=== PATIENT | female | born 1960 | race Two or more races ===

== ENCOUNTER 2017-09-22 09:09 | Outpatient (CLI) | payer OTHER | END 2017-09-22 09:23 | disposition home or self-care (01) | LOC: LAB 09:09 | DX: D64.9 Anemia, unspecified (principal); E03.8 Other specified hypothyroidism; E78.2 Mixed hyperlipidemia; E55.9 Vitamin D deficiency, unspecified; M19.90 Unspecified osteoarthritis, unspecified site; R19.09 Other intra-abdominal and pelvic swelling, mass and lump ==

== ENCOUNTER 2017-09-22 10:20 | Outpatient (CLI) | payer OTHER | END 2017-09-22 10:41 | disposition home or self-care (01) | LOC: RAD 10:20 | DX: R10.2 Pelvic and perineal pain (principal); Z12.31 Encounter for screening mammogram for malignant neoplasm of breast; N60.11 Diffuse cystic mastopathy of right breast; N60.12 Diffuse cystic mastopathy of left breast ==

== ENCOUNTER 2017-09-23 08:17 | Outpatient (CLI) | payer OTHER | END 2017-09-23 09:00 | disposition home or self-care (01) | LOC: NUCLEAR 08:17 | DX: R10.2 Pelvic and perineal pain (principal); R94.31 Abnormal electrocardiogram [ECG] [EKG]; I65.23 Occlusion and stenosis of bilateral carotid arteries ==

== ENCOUNTER 2018-02-07 08:38 | Outpatient (CLI) | payer OTHER | END 2018-02-07 15:01 | disposition home or self-care (01) | LOC: TOM 08:38 | DX: R91.1 Solitary pulmonary nodule (principal) ==

== ENCOUNTER → 2018-02-07 | Outpatient (CLI) | payer OTHER | END | disposition home or self-care (01) | LOC: LAB 06:53 | DX: E78.2 Mixed hyperlipidemia (principal); N83.291 Other ovarian cyst, right side; N83.292 Other ovarian cyst, left side ==

== ENCOUNTER 2018-02-08 14:51 | Outpatient (CLI) | payer OTHER | END 2018-02-08 15:07 | disposition home or self-care (01) | LOC: NUCLEAR 14:51 | DX: M81.0 Age-related osteoporosis without current pathological fracture (principal) ==

== ENCOUNTER → 2018-02-08 | Outpatient (CLI) | payer OTHER | END | disposition home or self-care (01) | LOC: LAB 13:57 | DX: N95.8 Other specified menopausal and perimenopausal disorders (principal) ==

== ENCOUNTER 2018-09-23 09:59 | Outpatient (CLI) | payer OTHER | END 2018-09-23 15:00 | disposition home or self-care (01) | LOC: LAB 09:59 | DX: D64.89 Other specified anemias (principal); E11.9 Type 2 diabetes mellitus without complications; E78.2 Mixed hyperlipidemia; E03.8 Other specified hypothyroidism; E55.9 Vitamin D deficiency, unspecified ==

== ENCOUNTER 2018-09-26 12:32 | Outpatient (CLI) | payer OTHER | END 2018-09-26 12:54 | disposition home or self-care (01) | LOC: MAMO-SONO 12:32 | DX: N60.11 Diffuse cystic mastopathy of right breast (principal); N60.12 Diffuse cystic mastopathy of left breast; Z12.31 Encounter for screening mammogram for malignant neoplasm of breast ==

== ENCOUNTER 2019-03-23 11:44 | Outpatient (CLI) | payer OTHER | END 2019-03-23 14:52 | disposition home or self-care (01) | LOC: LAB 11:44 | DX: D64.89 Other specified anemias (principal); E11.9 Type 2 diabetes mellitus without complications; E03.8 Other specified hypothyroidism; N39.0 Urinary tract infection, site not specified; E55.9 Vitamin D deficiency, unspecified; Z12.11 Encounter for screening for malignant neoplasm of colon ==

== ENCOUNTER 2019-03-26 09:12 | Outpatient (CLI) | payer OTHER | END 2019-03-26 15:00 | disposition home or self-care (01) | LOC: LAB 09:12 | DX: D64.89 Other specified anemias (principal); E11.9 Type 2 diabetes mellitus without complications; E03.8 Other specified hypothyroidism; N39.0 Urinary tract infection, site not specified; E55.9 Vitamin D deficiency, unspecified; Z12.11 Encounter for screening for malignant neoplasm of colon ==

== ENCOUNTER 2020-08-04 14:02 | Outpatient (CLI) | payer OTHER | END 2020-08-04 14:10 | disposition home or self-care (01) | LOC: LAB 14:02 | PROVIDERS: ATTEND Internal Medicine | DX: E03.8 Other specified hypothyroidism (principal); R97.1 Elevated cancer antigen 125 [CA 125] ==

== ENCOUNTER 2020-10-20 10:03 | Emergency (ER) | payer OTHER ==
[~2020-10-20] VITALS: Ht 157.5 cm; Wt 68.9 kg
[2020-10-20] MEDS ORDERED: CLONAZEPAM0.5 MG PO (10:25)
[2020-10-20] MEDS ORDERED: ATORVASTATIN CA10 MG PO (10:25)
[2020-10-20] MEDS ORDERED: LEVOTHYROXINE25 MCG PO (10:25)
[2020-10-20] MEDS ORDERED: KETO10TA2 PO (13:56)
[2020-10-22] MEDS ORDERED: LEVOTHYROXINE75 MCG (08:18)
== END 2020-10-20 14:36 | disposition home or self-care (01) ==
LOC: ER 10:03
DX: S50.11XA Contusion of right forearm, initial encounter (principal); W18.39XA Other fall on same level, initial encounter; Y93.89 Activity, other specified; Y92.89 Other specified places as the place of occurrence of the external cause; Y99.8 Other external cause status

== ENCOUNTER → 2020-10-21 | Day surgery (SDC) | payer OTHER ==
[~2020-10-21] VITALS: Ht 165.1 cm; Wt 74.8 kg
[~2020-10-21] MED LIST: ATORVASTATIN CA10 MG PO; CLONAZEPAM0.5 MG PO; KETO10TA2 PO; LEVOTHYROXINE25 MCG PO; LEVOTHYROXINE75 MCG
== END | disposition home or self-care (01) ==
LOC: ER 06:05 → CIR.AMB 06:07 → ER 06:07 → O/R 10:16 → ER 10:16 → SEC-K 10:16 → EDSTATUS 13:00 → O/R 13:14 → SEC-K 13:14 → SURG 17:12 → O/R 17:12 → SURG 18:00 → O/R 10-22 08:46
PROVIDERS: ATTEND Emergency Medicine
DX: S52.571A Other intraarticular fracture of lower end of right radius, initial encounter for closed fracture (principal); S52.691A Other fracture of lower end of right ulna, initial encounter for closed fracture; Z20.822 Contact with and (suspected) exposure to COVID-19

== ENCOUNTER 2021-03-31 10:28 | Outpatient (CLI) | payer OTHER | END 2021-03-31 10:29 | disposition home or self-care (01) | LOC: LAB 10:28 | PROVIDERS: ATTEND Internal Medicine | DX: E03.8 Other specified hypothyroidism (principal); I10 Essential (primary) hypertension; D64.89 Other specified anemias; E11.9 Type 2 diabetes mellitus without complications; E78.2 Mixed hyperlipidemia; N39.0 Urinary tract infection, site not specified; E55.9 Vitamin D deficiency, unspecified; N91.1 Secondary amenorrhea; Z79.890 Hormone replacement therapy ==

== ENCOUNTER 2021-04-23 10:49 | Outpatient (CLI) | payer OTHER | END 2021-04-23 10:58 | disposition home or self-care (01) | LOC: LAB 10:49 | PROVIDERS: ATTEND Specialist | DX: R19.00 Intra-abdominal and pelvic swelling, mass and lump, unspecified site (principal) ==

== ENCOUNTER 2021-10-14 13:07 | Outpatient (CLI) | payer OTHER | END 2021-10-14 13:17 | disposition home or self-care (01) | LOC: MAMO-SONO 13:07 | PROVIDERS: ATTEND Internal Medicine | DX: N60.11 Diffuse cystic mastopathy of right breast (principal); N60.12 Diffuse cystic mastopathy of left breast ==

== ENCOUNTER 2021-10-14 14:35 | Outpatient (CLI) | payer OTHER | END 2021-10-14 14:40 | disposition home or self-care (01) | LOC: NUCLEAR 14:35 | PROVIDERS: ATTEND Internal Medicine | DX: M81.0 Age-related osteoporosis without current pathological fracture (principal); Z88.0 Allergy status to penicillin ==

== ENCOUNTER 2022-07-19 11:07 | Outpatient (CLI) | payer OTHER | END 2022-07-19 11:20 | disposition home or self-care (01) | LOC: RAD 11:07 | PROVIDERS: ATTEND Internal Medicine Gastroenterology | DX: R10.11 Right upper quadrant pain (principal); R10.13 Epigastric pain ==

== ENCOUNTER 2022-10-12 10:49 | Outpatient (CLI) | payer OTHER | END 2022-10-12 10:59 | disposition home or self-care (01) | LOC: MAMO-SONO 10:49 | PROVIDERS: ATTEND Family Medicine | DX: Z12.31 Encounter for screening mammogram for malignant neoplasm of breast (principal); N60.19 Diffuse cystic mastopathy of unspecified breast; E04.1 Nontoxic single thyroid nodule ==

== ENCOUNTER 2024-02-01 10:36 | Outpatient (CLI) | payer OTHER | END 2024-02-01 10:47 | disposition home or self-care (01) | LOC: MAMO-SONO 10:36 | PROVIDERS: ATTEND Family Medicine | DX: N63.0 Unspecified lump in unspecified breast (principal); E03.9 Hypothyroidism, unspecified; J32.9 Chronic sinusitis, unspecified; N60.11 Diffuse cystic mastopathy of right breast; N60.12 Diffuse cystic mastopathy of left breast ==

== ENCOUNTER → 2024-02-01 13:07 | Outpatient (CLI) | payer OTHER ==
[2024-02-03 09:08] LABS: CA 125 4.9 U/mL (0.0-38.1)
== END | disposition home or self-care (01) ==
LOC: LAB 13:07
PROVIDERS: ATTEND Obstetrics & Gynecology
DX: R97.8 Other abnormal tumor markers (principal)

== ENCOUNTER 2024-02-01 13:31 | Outpatient (CLI) | payer OTHER | END 2024-02-01 13:32 | disposition home or self-care (01) | LOC: NUCLEAR 13:31 | PROVIDERS: ATTEND Obstetrics & Gynecology | DX: M81.0 Age-related osteoporosis without current pathological fracture (principal) ==

== ENCOUNTER 2024-02-21 09:23 | Outpatient (CLI) | payer OTHER | END 2024-02-21 09:37 | disposition home or self-care (01) | LOC: TOM 09:23 | PROVIDERS: ATTEND Internal Medicine | DX: C56.1 Malignant neoplasm of right ovary (principal); J44.9 Chronic obstructive pulmonary disease, unspecified | CPT/HCPCS: 72196 ==

== ENCOUNTER 2025-02-26 09:20 | Outpatient (CLI) | payer OTHER | END 2025-02-26 09:24 | disposition home or self-care (01) | LOC: MAMO-SONO 09:20 | PROVIDERS: ATTEND Family Medicine | DX: R10.20 Pelvic and perineal pain unspecified side (principal); E04.1 Nontoxic single thyroid nodule; R10.10 Upper abdominal pain, unspecified; R92.2 Inconclusive mammogram; Z12.31 Encounter for screening mammogram for malignant neoplasm of breast ==

== ENCOUNTER → 2025-04-16 23:04 | Day surgery (SDC) | payer OTHER ==
[2025-04-09 13:52] VITALS: BP 131/58
[~2025-04-16] VITALS: Ht 157.5 cm; Wt 55.8 kg
[~2025-04-16 23:04] MED LIST changes: +POVIDONE-IODINE 118 ML BOTT TOP ONE; +PROMETHAZINE HCL 50 MG/ML AMPUL IM PRN; +SUGAMMADEX SODIUM 200 MG/2 ML VIAL IV ONE
== END | disposition home or self-care (01) ==
LOC: ADM 04-09 10:00 → CIR.AMB 07:00
PROVIDERS: ATTEND Obstetrics & Gynecology
DX: D27.0 Benign neoplasm of right ovary (principal); D28.2 Benign neoplasm of uterine tubes and ligaments